=== PATIENT | female | born 1960 | race Caucasian/White ===

== ENCOUNTER 2021-11-05 14:35 | Outpatient (CLI) | payer BC | END 2021-11-05 14:36 | disposition home or self-care (01) | LOC: CSHMAMMO 14:35 | PROVIDERS: ATTEND Internal Medicine | DX: Z12.31 Encounter for screening mammogram for malignant neoplasm of breast (principal) | CPT/HCPCS: 77063; 77067 ==

== ENCOUNTER 2021-11-27 12:41 | Outpatient (CLI) | payer BC | END 2021-11-27 12:42 | disposition home or self-care (01) | LOC: CSHMRI 12:41 | PROVIDERS: ATTEND Anesthesiology Pain Medicine | DX: M54.14 Radiculopathy, thoracic region (principal); M54.6 Pain in thoracic spine; M47.814 Spondylosis without myelopathy or radiculopathy, thoracic region | CPT/HCPCS: 72146 ==

== ENCOUNTER 2022-05-20 10:13 | Outpatient (CLI) | payer BC | END 2022-05-20 10:14 | disposition home or self-care (01) | LOC: CSHMRI 10:13 | PROVIDERS: ATTEND Nurse Practitioner Family | DX: M48.062 Spinal stenosis, lumbar region with neurogenic claudication (principal); M47.816 Spondylosis without myelopathy or radiculopathy, lumbar region | CPT/HCPCS: 72148 ==

== ENCOUNTER 2025-09-23 10:47 | Emergency (ER) | payer MEDICARE ==
[2025-09-23] MEDS ORDERED: Ketorolac Tromethamine 30 MG (1 mL) VIAL ONE (11:21)
== END 2025-09-23 12:34 | disposition home or self-care (01) ==
LOC: CSHERS 10:47
DX: B34.9 Viral infection, unspecified (principal); I10 Essential (primary) hypertension
CPT/HCPCS: 71045; 87428; J1885; 96372